=== PATIENT | female | born 1950 | race Caucasian/White ===

== ENCOUNTER 2017-05-23 14:03 | Emergency (ER) | payer OTHER ==
[2017-05-23] MEDS ORDERED: Sodium Chloride 0.9% 5 ML Syringe FLUSH PRN (14:35)
[2017-05-23] MEDS ORDERED: Sodium Chloride 0.9% 1,000 ML IV ONE (14:35)
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
[2017-05-23 15:22] LABS: CHLORIDE,CL 104 mmol/L (98-115); SODIUM,NA 143 mmol/L (136-145)
[2017-05-23] MEDS ORDERED: Diphtheria,Pertussis(Acell),Tetanus Vaccine 0.5 ML SDV IM ONE (17:47)
== END 2017-05-23 18:05 ==
LOC: KA.ED 14:03
DX: T68.XXXA Hypothermia, initial encounter (principal)
CPT/HCPCS: 36415; 80048; 82550; 82553; 85025; 90471; 90715; 96360; 96361; 99284; J7030

== ENCOUNTER 2017-10-21 10:10 | Emergency (ER) | payer MEDICARE, OTHER ==
[2017-10-21] MEDS ORDERED: Sodium Chloride 0.9% 1,000 ML IV STA (10:39)
[2017-10-21] MEDS ORDERED: HYDROmorphone 1 MG/ML Syringe IVPUSH ONE ×2 (10:40→13:11)
[2017-10-21] MEDS ORDERED: Ondansetron 4 MG/2 ML SDV IVPUSH ONE (10:40)
[2017-10-21] MEDS ORDERED: Iopamidol 612 MG/ML 75 ML Bottle IV PRN (10:54)
[2017-10-21] MEDS ORDERED: Sodium Chloride 0.9% 50 ML IV SCH (11:00)
[2017-10-21 11:11] LABS: CHLORIDE,CL 98 mmol/L (98-115); SODIUM,NA 137 mmol/L (136-145)
[2017-10-21] MEDS ORDERED: cefTRIAXone 1 GM Vial IVPUSH ONE (11:21)
[2017-10-21] MEDS ORDERED: Water For Injection, Sterile 20 ML ONE (11:28)
--- NOTE | 2017-10-21 12:19 | EDM.PDOC ---
ED HPI GENERAL MEDICAL PROBLEM - General Chief Complaint: Abdominal Pain Stated Complaint: ABDOMINAL PAIN;VOMITING Time Seen by Provider: 10/21/17 10:22 Source of Information: Reports: Patient History Limitations: Reports: No Limitations - History of Present Illness INITIAL COMMENTS - FREE TEXT/NARRATIVE: PATIENT IS A 67-YEAR-OLD FEMALE WHO PRESENTS TO THE EMERGENCY DEPARTMENT THIS MORNING WITH A COMPLAINT OF ABDOMINAL PAIN. PATIENT STATES PAIN BEGAN 3 DAYS AGO, SLIGHTLY IMPROVED YESTERDAY, AND BECAME WORSE THIS MORNING. PATIENT STATES SHE HAS NOT HAD A BOWEL MOVEMENT IN 3 DAYS AND GOES REGULARLY ONCE PER DAY. PATIENT STATES THAT SHE HAS FELT NAUSEOUS AND HAS VOMITED SEVERAL TIMES. HAS BEEN UNABLE TO EAT OR CONSUME LIQUIDS. PATIENT IS AN INSULIN-DEPENDENT DIABETIC. PATIENT DENIES CHEST PAIN, SHORTNESS OF BREATH, ANY TRAUMA, BLOOD IN STOOL OR VOMITUS, OUT OF COUNTRY TRAVEL, OR ANY CONTACTS WITH SIMILAR SYMPTOMS. Onset: Gradual Onset Date: 10/18/17 Duration: Day(s): Location: Reports: Abdomen Quality: Reports: Ache Severity: Moderate Improves with: Reports: None Worsens with: Reports: None Associated Symptoms: Reports: Nausea/Vomiting Middle Abdominal Pain Score (Numeric/FACES): 4 - Related Data Allergies Allergy/AdvReac Type Severity Reaction Status Date / Time bupropion [From Wellbutrin] AdvReac Nausea and Verified 05/24/17 12:00 Vomiting glucosamine AdvReac Nausea and Verified 05/24/17 12:00 Vomiting Home Meds: Home Meds Insulin Aspart [NovoLOG] 100 unit .ROUTE ASDIRECTED 10/21/17 [History] Latanoprost 1 drop EYEBOTH BEDTIME 10/21/17 [History] Levothyroxine 75 mcg PO DAILYBH 10/21/17 [History] Past Medical History HEENT History: Reports: Glaucoma, Impaired Vision Cardiovascular History: Reports: High Cholesterol Gastrointestinal History: Reports: Chronic Diarrhea, Colon Polyp, Other (See Below) Other Gastrointestinal History: colitis 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 Constitutional: Reports: No Symptoms HEENT: Reports: No Symptoms Respiratory: Reports: No Symptoms Cardiovascular: Reports: No Symptoms Endocrine: Reports: No Symptoms GI/Abdominal: Reports: Abdominal Pain, Constipation, Nausea, Vomiting : Reports: No Symptoms Musculoskeletal: Reports: No Symptoms Skin: Reports: No Symptoms Neurological: Reports: No Symptoms Psychiatric: Reports: No Symptoms Hematologic/Lymphatic: Reports: No Symptoms Immunologic: Reports: No Symptoms ED EXAM, GI/ABD - Physical Exam Exam: See Below Exam Limited By: No Limitations General Appearance: Alert, WD/WN, No Apparent Distress Throat/Mouth: Normal Inspection, Normal Oropharynx, No Airway Compromise Head: Atraumatic, Normocephalic Neck: Normal Inspection, Supple, Non-Tender Respiratory/Chest: No Respiratory Distress, Lungs Clear, Normal Breath Sounds, No Accessory Muscle Use, Chest Non-Tender Cardiovascular: Regular Rate, Rhythm, No Murmur GI/Abdominal Exam: Soft, No Organomegaly, No Distention, No Abnormal Bruit, No Mass, Guarding, Tender (DIFFUSELY), Other (DECREASED BOWEL SOUNDS IN ALL 4 QUADRANTS). No: Normal Bowel Sounds, Non-Tender, Distended Back Exam: Normal Inspection. No: CVA Tenderness (L), CVA Tenderness (R) Extremities: Normal Inspection, No Pedal Edema Neurological: Alert, Oriented, Normal Cognition Psychiatric: Normal Affect, Normal Mood Skin Exam: Warm, Dry, Intact, Normal Color, No Rash Lymphatic: No Adenopathy Course - Vital Signs Last Recorded V/S: Last Vital Signs Temp 98.9 F 10/21/17 10:16 Pulse 82 10/21/17 10:16 Resp 20 10/21/17 10:16 BP 144/60 H 10/21/17 10:16 Pulse Ox 97 10/21/17 10:16 - Orders/Labs/Meds Orders: Active Orders 24 hr Category Date Time Status Abdomen Pelvis w Cont [CT] Stat Exams 10/21/17 10:39 Ordered AMYLASE [CHEM] Stat Lab 10/21/17 10:39 Ordered CBC WITH AUTO DIFF [HEME] Stat Lab 10/21/17 10:39 Ordered COMPREHENSIVE METABOLIC PN,CMP [CHEM] Stat Lab 10/21/17 10:39 Ordered LIPASE [CHEM] Stat Lab 10/21/17 10:39 Ordered UA W/MICROSCOPIC [URIN] Stat Lab 10/21/17 10:39 Ordered HYDROmorphone [Dilaudid] Med 10/21/17 10:40 Once 0.5 mg IVPUSH ONETIME ONE Ondansetron [Zofran] Med 10/21/17 10:40 Once 4 mg IVPUSH ONETIME ONE Sodium Chloride 0.9% [Normal Saline] 1,000 ml Med 10/21/17 10:39 Ordered IV .BOLUS - Radiology Interpretation Free Text/Narrative:: Abdomen and pelvis CT with contrast shows Acute ruptured appendicitis - Re-Assessments/Exams Free Text/Narrative Re-Assessment/Exam: 10/21/17 12:33 Patient afebrile, nontoxic appearing, pain control. Discussed case with Dr. Reyes, Gen. surgery at [facility] and he will transfer of care. Departure - Departure Time of Disposition: 12:35 Disposition: DC/Tfer to Acute Hospital 02 Condition: Fair Clinical Impression: Appendicitis Qualifiers: Appendicitis type: acute appendicitis Acute appendicitis type: unspecified acute appendicitis type Qualified Code(s): K35.80 - Unspecified acute appendicitis Abdominal pain Qualifiers: Abdominal location: generalized Qualified Code(s): R10.84 - Generalized abdominal pain Urinary tract infection Qualifiers: Urinary tract infection type: acute cystitis Hematuria presence: with hematuria Qualified Code(s): N30.01 - Acute cystitis with hematuria - Discharge Information Referrals: Norma De La Rosa PA-C [Primary Care Provider] - - My Orders Last 24 Hours: My Active Orders 10/21/17 10:39 Abdomen Pelvis w Cont [CT] Stat AMYLASE [CHEM] Stat CBC WITH AUTO DIFF [HEME] Stat COMPREHENSIVE METABOLIC PN,CMP [CHEM] Stat LIPASE [CHEM] Stat UA W/MICROSCOPIC [URIN] Stat Sodium Chloride 0.9% [Normal Saline] 1,000 ml IV .BOLUS 10/21/17 10:40 HYDROmorphone [Dilaudid] 0.5 mg IVPUSH ONETIME ONE Ondansetron [Zofran] 4 mg IVPUSH ONETIME ONE - Assessment/Plan Last 24 Hours: My Active Orders 10/21/17 10:39 Abdomen Pelvis w Cont [CT] Stat AMYLASE [CHEM] Stat CBC WITH AUTO DIFF [HEME] Stat COMPREHENSIVE METABOLIC PN,CMP [CHEM] Stat LIPASE [CHEM] Stat UA W/MICROSCOPIC [URIN] Stat Sodium Chloride 0.9% [Normal Saline] 1,000 ml IV .BOLUS 10/21/17 10:40 HYDROmorphone [Dilaudid] 0.5 mg IVPUSH ONETIME ONE Ondansetron [Zofran] 4 mg IVPUSH ONETIME ONE Assessment:: Acute appendicitis Plan: Transferred to [facility]
[2017-10-21] MEDS ORDERED: metroNIDAZOLE/Normal Saline 500 MG in Premix Bag 1 BAG IV ONE (12:36)
[2017-10-21] MEDS ORDERED: metroNIDAZOLE/Normal Saline 100 ML ONE (12:41)
[2017-10-21] MEDS ORDERED: Sodium Chloride 0.9% 1,000 ML IV ONE (12:43)
== END 2017-10-21 13:22 ==
LOC: KA.ED 10:10
DX: K35.80 Unspecified acute appendicitis (principal); N30.01 Acute cystitis with hematuria; E10.9 Type 1 diabetes mellitus without complications; E03.9 Hypothyroidism, unspecified; F17.210 Nicotine dependence, cigarettes, uncomplicated; Z88.8 Allergy status to other drugs, medicaments and biological substances; Z79.899 Other long term (current) drug therapy
CPT/HCPCS: 36415; 74177; 80053; 81001; 82150; 83690; 85025; 96365; 96375; 96376; 99284; 99285; J0696; J1170; J2405; J7030; J7050; Q9967